=== PATIENT | male | born 1940 | race Caucasian/White ===

== ENCOUNTER 2020-02-23 12:59 | Emergency (ER) | payer OTHER ==
[~2020-02-23] VITALS: Ht 172.7 cm; Wt 74.8 kg
[2020-02-23 13:05] VITALS: BP_SYST 113
[2020-02-23] MEDS ORDERED: AMLO10TA88 PO (13:14)
[2020-02-23] MEDS ORDERED: CARV3.1246 PO (13:14)
[2020-02-23] MEDS ORDERED: CHOL100034 PO (13:14)
[2020-02-23] MEDS ORDERED: NEU100 PO (13:14)
[2020-02-23] MEDS ORDERED: FAMO40TA71 PO (13:14)
[2020-02-23] MEDS ORDERED: DOCU250C71 PO (13:14)
[2020-02-23] MEDS ORDERED: CLOP75TA32 PO (13:19)
[2020-02-23] MEDS ORDERED: FOLI-43 PO (13:20)
[2020-02-23] MEDS ORDERED: TIOT18CA3 INH (13:20)
[2020-02-23 13:25] LABS: BASOPHILS % (AUTO) 0.5 % (0.0-2.0); EOSINOPHILS # (AUTO) 0.5 K/uL (0.0-0.4); EOSINOPHILS % (AUTO) 6.6 % (0.0-4.0); HEMATOCRIT 31.8 % (36-54); HEMOGLOBIN 10.5 g/dL (14.0-18.0); LYMPHOCYTES # (AUTO) 1.7 K/uL (1.0-5.5); LYMPHOCYTES % (AUTO) 21.6 % (20.5-51.5); MEAN CORPUSCULAR HEMOGLOBIN 27 pg (27-31); MEAN CORPUSCULAR HGB CONC 33 % (32-36); MEAN CORPUSCULAR VOLUME 83 fL (79.0-98.0); MONOCYTES # (AUTO) 0.6 K/uL (0.0-1.0); MONOCYTES % (AUTO) 7.1 % (1.7-9.3); NEUTROPHILS # (AUTO) 5.2 K/uL (1.8-7.7); NEUTROPHILS % (AUTO) 64.2 % (40.0-70.0); PLATELET COUNT (AUTO) 345 K/uL (130-430); RED BLOOD CELL COUNT(AUTO) 3.85 MIL/uL (4.2-6.2); RED CELL DISTRIBUTION WIDTH 20.5 % (9.0-15.0)
[2020-02-23 13:41] LABS: ANION GAP 6 (5-15); CALCIUM 8.5 mg/dL (8.4-11.0); CHLORIDE 101 mmol/L (98-107); CREATININE 1.57 mg/dL (0.55-1.30); GLUCOSE 106 mg/dL (70-99); POTASSIUM 4.2 mmol/L (3.5-5.1); SODIUM SERUM 134 mmol/L (136-145); UREA NITROGEN, BLOOD 22 mg/dL (8-21)
[2020-02-23] MEDS ORDERED: SERT-131 PO (13:44)
[2020-02-23 13:47] LABS: ALANINE AMINOTRANSFERASE 20 U/L (12-78); ALBUMIN 3.6 g/dL (3.4-4.8); ASPARTATE AMINOTRANSFERASE 14 U/L (10-37); CHOLESTEROL 125 mg/dL (<200); HDL CHOLESTEROL 38 mg/dL (>45); LDL CHOLESTEROL 76 mg/dL (<100); TOTAL BILIRUBIN 0.4 mg/dL (0.0-1.0); TRIGLYCERIDES 72 mg/dL (30-150)
[2020-02-23] MEDS ORDERED: HAL5 PO (13:47)
[2020-02-23] MEDS ORDERED: FLUT1AER6 INH (13:47)
[2020-02-23] MEDS ORDERED: METH500T6 PO (13:47)
[2020-02-23] MEDS ORDERED: LIP80 PO (13:47)
[2020-02-23] MEDS ORDERED: LORA-258 PO (13:47)
[2020-02-23] MEDS ORDERED: IPRA3AMP9 INH (13:47)
[2020-02-23] MEDS ORDERED: MIRT7.5T11 PO (13:47)
[2020-02-23 13:50] LABS: ACETAMINOPHEN 5 ug/mL (1-30); ALCOHOL, BLOOD < 3 mg/dL (<10)
[2020-02-23] MEDS ORDERED: CALC-469 PO (13:50)
[2020-02-23] MEDS ORDERED: ACET325S7 PO (13:50)
[2020-02-23] MEDS ORDERED: OXYC-133 PO (13:50)
[2020-02-23] MEDS ORDERED: [UNRECOGNIZED DRUG - CODE] PO (13:50)
[2020-02-23 13:58] LABS: BILIRUBIN,URINE NEGATIVE (NEGATIVE); BLOOD, URINE NEGATIVE (NEGATIVE); CLARITY/URINE CLEAR (CLEAR); COLOR,URINE YELLOW (YELLOW); GLUCOSE,URINE NEGATIVE (NEGATIVE); KETONES,URINE TRACE (NEGATIVE); LEUKOCYTE ESTERASE ,URINE NEGATIVE (NEGATIVE); NITRITE, URINE NEGATIVE (NEGATIVE); PH,URINE 5.5 (5.0-8.0); PROTEIN URINE NEGATIVE (NEGATIVE); UROBILINOGEN,URINE 0.2 (0.2-1.0)
[2020-02-23 14:06] LABS: BARBITURATE, URINE NEGATIVE (NEG <=200); BENZODIAZEPINE, URINE POSITIVE (NEG <=150); CANNABINOID, URINE NEGATIVE (NEG <=50); COCAINE, URINE NEGATIVE (NEG <=150); METHAMPHETAMINES SCREEN,URINE NEGATIVE (NEG <=500); URINE AMPHETAMINE NEGATIVE (NEG <=500); URINE METHADONE NEGATIVE (NEG <=200)
[2020-02-23 14:07] LABS: OPIATE, URINE NEGATIVE (NEG <=100); PHENCYCLIDINE SCREEN,URINE NEGATIVE (NEG <=25); UR TRICYCLIC ANTIDEPRESSANTS NEGATIVE (NEG <=300); URINE OXYCODONE SCREEN POSITIVE (NEG <=100); URINE PROPOXYPHENE SCREEN NEGATIVE (NEG <=300)
[2020-02-23 20:36] VITALS: BP_SYST 149
== END 2020-02-23 20:42 | disposition psychiatric hospital, planned readmission (93) ==
LOC: SED 12:59
DX: R45.1 Restlessness and agitation (principal); Z79.899 Other long term (current) drug therapy
CPT/HCPCS: 36415; 80053; 80061; 80307; 81003; 83036; 85025; 87081; 99285; G0480; G0481; G0482; J7030